=== PATIENT | female | born 1955 | race Caucasian/White ===

== ENCOUNTER 2023-01-22 06:00 | Outpatient (RCR) | payer MEDICARE, OTHER, SELFPAY | END 2023-02-20 23:59 | disposition home or self-care (01) | LOC: GPT 06:00 | PROVIDERS: Visit Provider Internal Medicine Sports Medicine | DX: M67.874 Other specified disorders of tendon, left ankle and foot (principal) | CPT/HCPCS: 97110; 97112; 97161 ==

== ENCOUNTER 2023-02-21 06:00 | Outpatient (RCR) | payer MEDICARE, OTHER, SELFPAY | END 2023-02-27 23:59 | disposition home or self-care (01) | LOC: GPT 06:00 | PROVIDERS: Visit Provider Internal Medicine Sports Medicine | DX: M76.822 Posterior tibial tendinitis, left leg (principal) | CPT/HCPCS: 97110; 97112 ==